=== PATIENT | female | born 1965 | race Caucasian/White ===

== ENCOUNTER → 2016-12-13 | Outpatient (CLI) | payer OTHER | LOC: MAMO 11-28 13:20 → US 11-28 14:00 → MAMO 09:40 | DX: R92.8 Other abnormal and inconclusive findings on diagnostic imaging of breast (principal) | CPT/HCPCS: G0206 ==

== ENCOUNTER → 2022-02-28 | Outpatient (CLI) | payer OTHER | LOC: KOH-I 09:09 | DX: M25.572 Pain in left ankle and joints of left foot (principal); S92.152A Displaced avulsion fracture (chip fracture) of left talus, initial encounter for closed fracture | CPT/HCPCS: 73610; 73630 ==